=== PATIENT | female | born 1975 | race Two or more races ===

== ENCOUNTER 2018-09-05 04:03 | Emergency (ER) | payer MEDICAID ==
[~2018-09-05] VITALS: Ht 157.5 cm; Wt 56.7 kg
--- NOTE | 2018-09-05 04:10 | NUR ---
PT BIBRA FROM HOME C/O MIDSTERNAL CHEST PAIN. PT STATES PAIN WOKE HER UP FROM HER SLEEP. DENIES RADIATION OF PAIN, HEADACHE, SOB, N/V/D. PER RA, PT RECEIVED 162 MG ASPIRIN AND 1 SPRAY NITRO EN ROUTE, MINIMAL RELIEF. PT AAOX4. RESPIRATIONS EVEN AND UNLABORED. SKIN WARM AND INTACT. NO ACUTE DISTRESS NOTED. 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
--- NOTE | 2018-09-05 04:11 | NUR ---
MD AT BEDSIDE FOR EVALUATION
[2018-09-05] MEDS ORDERED: LORAZEPAM INJ 2 MG/ML VIAL ONE (04:22)
--- NOTE | 2018-09-05 04:40 | NUR ---
METAL SASH SETTER AT BEDSIDE FOR BLOODDRAW
--- NOTE | 2018-09-05 04:50 | NUR ---
RADIOLOGY AT BEDSIDE FOR CXR
[2018-09-05] MEDS: LORAZEPAM INJ 2 MG/ML VIAL IV ONE (04:52)
[2018-09-05 04:54] LABS: BASOPHILS # (AUTO) 0.2 /CMM (0.0-0.2); BASOPHILS % (AUTO) 2.5 % (0.0-2.0); EOSINOPHILS % (AUTO) 2.8 % (0.0-6.0); HEMATOCRIT 44 % (33-45); HEMOGLOBIN 15.2 g/dL (11.5-14.8); LYMPHOCYTES # (AUTO) 1.5 /CMM (0.8-4.8); LYMPHOCYTES % (AUTO) 24.4 % (20.0-44.0); MEAN CORPUSCULAR HGB CONC 34 g/dl (31.0-36.0); MEAN CORPUSCULAR VOLUME 95 fL (82-100); MONOCYTES # (AUTO) 0.6 /CMM (0.1-1.30); MONOCYTES % (AUTO) 9.2 % (2.0-12.0); NEUTROPHILS # (AUTO) 3.7 /CMM (1.8-8.9); NEUTROPHILS % (AUTO) 61.1 % (43.0-81.0); PLATELET COUNT (AUTO) 278 /CMM (150-450); RED BLOOD CELL COUNT(AUTO) 4.68 MIL/uL (4.0-5.2); WHITE BLOOD COUNT (AUTO) 6.1 K/uL (4.3-11.0)
[2018-09-05 05:05] LABS: CALCIUM, SERUM 8.5 mg/dL (8.5-10.1); CARBON DIOXIDE 25 mmol/L (21-32); CHLORIDE 106 mmol/L (98-107); CREATININE 0.5 mg/dL (0.6-1.3); GLUCOSE 101 mg/dL (74-106); SODIUM SERUM 145 mmol/L (136-145); UREA NITROGEN, BLOOD 8 mg/dL (7-18)
[2018-09-05 05:26] LABS: D-DIMER 0.51 mg/L(FEU (0.17-0.50)
[2018-09-05] MEDS ORDERED: CT SWABBABLE VALVE TRANS SET 1 EA INFUS.SET MC ONE (05:37)
[2018-09-05] MEDS ORDERED: IOHEXOL-350 100 ML VIAL IV ONE (05:37)
--- NOTE | 2018-09-05 05:45 | NUR ---
PT BROUGHT BY RADIOLOGY FOR CT
[2018-09-05 06:40] VITALS: BP 140/89
--- NOTE | 2018-09-05 06:40 | NUR ---
Patient discharged to home in stable condition. Written and verbal after care instructions given. Patient verbalizes understanding of instruction. IV removed. Catheter intact and site benign. Pressure and 4x4 applied to site. No bleeding noted. Pt ambulatory with a steady gait. Instructed not to drive
== END 2018-09-05 06:41 | disposition home or self-care (01) ==
LOC: ER 04:08
DX: R07.89 Other chest pain (principal); J45.909 Unspecified asthma, uncomplicated; F10.10 Alcohol abuse, uncomplicated; F17.200 Nicotine dependence, unspecified, uncomplicated; Y90.9 Presence of alcohol in blood, level not specified; Z98.890 Other specified postprocedural states; Z88.0 Allergy status to penicillin; Z88.8 Allergy status to other drugs, medicaments and biological substances
CPT/HCPCS: 36415; 71045-TC; 80048-TC; 84484-TC; 85025-TC; 85378-TC; 85730-TC; J2060; Q9967